=== PATIENT | male | born 1975 | race Hispanic/Latino ===

== ENCOUNTER 2018-05-03 23:21 | Emergency (ER) | payer OTHER ==
[2018-05-04] MEDS ORDERED: KETOROLAC TROMETHAMINE 15MG/ML ONE (00:44)
[2018-05-04 00:54] LABS: APPEARANCE,URINE Turbid (CLEAR); BILIRUBIN,URINE Negative (NEGATIVE); COLOR,URINE Orange (YELLOW); GLUCOSE, URINE (UA) Negative (NEGATIVE); KETONES,URINE Trace mg/dL (NEGATIVE); LEUKOCYTE ESTERASE ,URINE Trace (NEGATIVE); NITRATE,URINE Negative (NEGATIVE); OCCULT BLOOD,URINE Large (NEGATIVE); PROTEIN,URINE POS 1+ (NEGATIVE)
[2018-05-04 01:23] LABS: BACTERIA,URINE Few /HPF (None Seen); MUCUS,URINE Few LPF (None Seen); RBC,URINE 51-100 /HPF (0-1); SQUAMOUS EPITHELIAL CELL,UR Few /HPF (0-2); YEAST,URINE BUDDING Moderate /HPF (None Seen)
== END 2018-05-04 02:33 | disposition home or self-care (01) ==
LOC: EDH 23:21
DX: N20.1 Calculus of ureter (principal); Z87.442 Personal history of urinary calculi; Z90.89 Acquired absence of other organs
CPT/HCPCS: 74176; 81001; 96374; 99284; J1885

== ENCOUNTER → 2018-05-21 | Outpatient (CLI) | payer OTHER | END | disposition home or self-care (01) | LOC: RAH 13:22 | PROVIDERS: ATTEND Internal Medicine | DX: N20.0 Calculus of kidney (principal) | CPT/HCPCS: 76770 ==

== ENCOUNTER → 2019-05-20 | Outpatient (CLI) | payer OTHER | END | disposition home or self-care (01) | LOC: RAH 13:17 | PROVIDERS: ATTEND Internal Medicine | DX: K40.20 Bilateral inguinal hernia, without obstruction or gangrene, not specified as recurrent (principal); N50.812 Left testicular pain | CPT/HCPCS: 76870 ==

== ENCOUNTER → 2020-08-20 | Outpatient (CLI) | payer OTHER | END | disposition home or self-care (01) | LOC: RAH 07:50 | PROVIDERS: ATTEND Internal Medicine | DX: G89.29 Other chronic pain (principal); M25.512 Pain in left shoulder | CPT/HCPCS: 73221 ==

== ENCOUNTER → 2024-11-14 | Outpatient (CLI) | payer OTHER ==
[~2024-11-14] MED LIST: OSEL75 PO
--- NOTE | 2024-11-15 07:19 | HMCIMG ---
EXAMINATION: SOFT TISSUE ULTRASOUND OF THE BILATERAL GROIN. CLINICAL HISTORY: Bilateral hernia without obstruction from the prior ultrasound. COMPARISON: None. TECHNIQUE: Transverse and longitudinal images were obtained in the bilateral groin. FINDINGS: There is left inguinal hernia, the sac measures 5.6 x 1.3 x 2.9 cm and contains bowel. There is an enlarged lymph node that measures 3.1 x 1.1 x 0.8 cm in the right groin. Hilar echoes are maintained. No increased vascularity. There is no inguinal hernia on the right side. IMPRESSION: Left inguinal hernia. Right inguinal lymph node. Recommend CT abdomen and pelvis. /[place]
== END | disposition home or self-care (01) ==
LOC: RAH 13:29
PROVIDERS: ATTEND Internal Medicine
DX: K40.90 Unilateral inguinal hernia, without obstruction or gangrene, not specified as recurrent (principal)
CPT/HCPCS: 76882